=== PATIENT | female | born 1945 | race Caucasian/White ===

== ENCOUNTER 2023-01-06 14:27 | Outpatient (OUT) | payer MEDICARE, SELFPAY ==
--- NOTE | 2023-01-06 14:34 | MM_ITS ---
Patient: BOBO BAUGH Exam Date: 01/06/2023 : 1945 Gender:F Ordering : DR Gordon Montenegro . Admission #: Family : Order #: [id number] CLICK HERE TO VIEW EXAM RADIOLOGY REPORT PROCEDURE: MM TOMOSYNTHESIS SCREENING BI COMPARISON: MG MAMM DIAZ SCRN W CAD DIG, 05/30/2016. MG MAMM SCREEN 3D DIAZ CAD, 12/25/2020. INDICATIONS: Calculator Name NCI Breast Cancer Risk Assessment Tool 5 Year Breast Cancer Risk 1.70% Lifetime Breast Cancer Risk 2.80% Personal Breast Cancer No Personal Ovarian Cancer No Treatments None Family Cancers Father with esophageal cancer at age 67. LOCATION: [facility] BREAST COMPOSITION: Almost entirely fatty. FINDINGS: DIAGNOSTIC CATEGORY 2--BENIGN FINDING. NO CHANGE FROM COMPARISON. Scattered benign-appearing nodules are present. Scattered benign-appearing calcifications are present. Scattered benign-appearing lymph nodes are present. RIGHT BREAST: No significant suspicious finding. LEFT BREAST: No significant suspicious finding. RECOMMENDATIONS: ROUTINE MAMMOGRAM AND CLINICAL EVALUATION IN 12 MONTHS. PLEASE NOTE: A NORMAL MAMMOGRAM DOES NOT EXCLUDE THE POSSIBILITY OF BREAST CANCER. A CLINICALLY SUSPICIOUS PALPABLE LUMP SHOULD BE BIOPSIED. Dictated by: Marcelino Palacios MD on 01/07/2023 at 08:42 Approved by: Marcelino Palacios MD on 01/07/2023 at 08:44
== END 2023-01-06 14:28 | disposition home or self-care (01) ==
LOC: MAMMO 14:27
PROVIDERS: PCP Family Medicine; Visit Provider Obstetrics & Gynecology
DX: Z12.31 Encounter for screening mammogram for malignant neoplasm of breast (principal); Z80.0 Family history of malignant neoplasm of digestive organs
CPT/HCPCS: 77063; 77067

== ENCOUNTER 2025-04-21 15:45 | Outpatient (RCR) | payer MEDICARE, SELFPAY | END 2025-06-24 23:00 | disposition home or self-care (01) | LOC: PT 15:45 | PROVIDERS: PCP Family Medicine; Visit Provider Family Medicine | DX: S13.4XXD Sprain of ligaments of cervical spine, subsequent encounter (principal) | CPT/HCPCS: 97110; 97112; 97161 ==